=== PATIENT | male | born 1950 | race African-American/Black ===

== ENCOUNTER → 2017-06-07 | Outpatient (REF) ==
--- NOTE | 2017-06-07 13:05 | DI ---
EXAM: Two views of the chest. History: Pre-employment annual screening chest radiograph Comparison: Chest radiograph 07/08/2014 Findings: Heart size is normal. No focal consolidation. No appreciable pleural fluid and no pneumo thorax. No acute osseous abnormalities. Impression: No acute cardiopulmonary process. No change compared to the prior study.
== END ==
LOC: RAD 11:16
DX: Z02.89 Encounter for other administrative examinations (principal)